=== PATIENT | female | born 1970 | race Caucasian/White ===

== ENCOUNTER → 2020-02-08 | Outpatient (CLI) | payer BC ==
--- NOTE | 2020-02-09 08:15 | MM ---
Reason for exam: additional evaluation requested from prior study. Last mammogram was performed 6 years ago. History: Benign stereotactic core biopsy of the left breast, 2011. Physical Findings: Nurse Summary: 1.5cm nodule in the right breast at 11 o'clock (nurse jose manuel). MG 3D Diag Mammo W/Cad IZABELA Bilateral CC and MLO view(s) were taken. Prior study comparison: February 14, 2014, mammogram. The breast tissue is heterogeneously dense. This may lower the sensitivity of mammography. Finding: There are typically benign fine, linear (casting), diffuse/scattered calcifications in the left breast. Previous mammotome biopsy in the left breast. No significant changes in finding since February 14, 2014. These results were verbally communicated with the patient and result sheet given to the patient on 02/08/20. ASSESSMENT: Benign, BI-RAD 2 RECOMMENDATION: Routine screening mammogram of both breasts in 1 year.
--- NOTE | 2020-02-09 08:23 | USB ---
Reason for exam: additional evaluation requested from prior study. History: Benign stereotactic core biopsy of the left breast, 2011. US Breast BILAT Technologist: Audra Castro Right complete breast ultrasound includes all four quadrants, the retroareolar region and axilla. Finding demonstrates a 0.4 x 0.4 x 0.2cm circular, cystic lesion at 4 o'clock, a 0.5 x 0.5 x 0.4cm circular, cystic lesion at 5 o'clock and a 1.0 x 0.7 x 0.6cm cystic lesion at 7 o'clock. Left complete breast ultrasound includes all four quadrants, the retroareolar region and axilla. Finding demonstrates a 0.8 x 0.9 x 0.7cm cystic lesion at 1 o'clock and a 0.9 x 0.6 x 0.4cm internal echoes at 1 o'clock. Innumerable cystic lesions bilaterally. No abnormality to correspond to palpable. These results were verbally communicated with the patient and result sheet given to the patient on 02/08/20. ASSESSMENT: Benign, BI-RAD 2 RECOMMENDATION: Routine screening mammogram of both breasts in 1 year.
== END | disposition home or self-care (01) ==
LOC: RADMAMWWP 13:42
PROVIDERS: ATTEND Family Medicine
DX: R92.2 Inconclusive mammogram (principal)
CPT/HCPCS: 77062; 77066